=== PATIENT | male | born 1930 | race Caucasian/White ===

== ENCOUNTER 2017-06-02 07:36 | Day surgery (SDC) | payer MEDICARE, OTHER ==
[~2017-06-02 07:36] MED LIST: Lactated Ringers 1,000 ML IV SCH; Lidocaine 1%/Sod Bicarbonate in NS 8.4% 1 ML Syringe IV PRN; Propofol 200 MG/20 ML SDV ONE; Sodium Chloride 0.9% 10 ML Syringe FLUSH PRN; fentaNYL 100 MCG/2 ML SDV ONE
--- NOTE | 2017-06-02 08:00 | PCM.PREANE ---
Preanesthetic Assessment - Procedure Proposed Procedure: Diagnostic EGD/ Colonoscopy - Anesthesia/Transfusion/Family Hx Anesthesia History: Prior Anesthesia Without Reaction Family History of Anesthesia Reaction: No Transfusion History: No Prior Transfusion(s) - Review of Systems General: No Symptoms Pulmonary: Other (HX of PE 2014) Cardiovascular: Other (CABG 1986, HTN) Gastrointestinal: Other (GERD) Neurological: No Symptoms Other: Reports: Easy Bleeding, Easy Bruising (on eliquis), Anxiety - Physical Assessment NPO Status Date: 06/01/17 NPO Status Time: 20:30 Pulse: 68 O2 Sat by Pulse Oximetry: 94 Respiratory Rate: 16 Blood Pressure: 129/61 Temperature: 37.3 C Height: 1.63 m Weight: 70.171 kg ASA Class: 3 Mental Status: Alert & Oriented x3 Airway Class: Mallampati = 2 Dentition: Reports: Partial (upper ) Thyro-Mental Finger Breadths: 3 Mouth Opening Finger Breadths: 3 ROM/Head Extension: Full Lungs: Clear to Auscultation, Normal Respiratory Effort Cardiovascular: Regular Rate, Regular Rhythm - Allergies Allergies/Adverse Reactions: Allergies Allergy/AdvReac Type Severity Reaction Status Date / Time No Known Allergies Allergy Verified 06/01/17 15:08 - Blood Blood Available: No Product(s) Available: None - Anesthesia Plan Pre-Op Medication Ordered: None Beta Nemesio: Atenolol Med Last Dose Date: 06/01/17 Med Last Dose Time: 07:00 - Acknowledgements Anesthesia Type Planned: MAC Pt an Appropriate Candidate for the Planned Anesthesia: Yes Alternatives and Risks of Anesthesia Discussed w Pt/Guardian: Yes Pt/Guardian Understands and Agrees with Anesthesia Plan: Yes PreAnesthesia Questionnaire Other HEENT History: wears eyeglasses, bilateral hearing aides. 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 Endocrine/Metabolic History: Reports: None Hematologic History: Reports: None Immunologic History: Reports: None Oncologic (Cancer) History: Reports: None Dermatologic History: Reports: None - Past Surgical History Head Surgeries/Procedures: Reports: None Cardiovascular Surgical History: Reports: Coronary Artery Bypass Other Cardiovascular Surgeries/Procedures: "quad bypass" Respiratory Surgical History: Reports: None GI Surgical History: Reports: Colonoscopy, EGD, Hernia, Inguinal Female Surgical History: Reports: None Male Surgical History: Reports: None Endocrine Surgical History: Reports: None Other Musculoskeletal Surgeries/Procedures:: laminectomy L4-5, amputation of tip of L) middle finger. Oncologic Surgical History: Reports: None Dermatological Surgical History: Reports: None - SUBSTANCE USE Smoking Status *Q: Former Smoker Tobacco Use Within Last Twelve Months: Cigars Second Hand Smoke Exposure: No Recreational Drug Use History: No - HOME MEDS Home Medications: Home Meds ALPRAZolam [Xanax] 0.25 mg PO TID PRN 06/19/15 [History] Atenolol 25 mg PO DAILY 06/19/15 [History] Niacin 500 mg PO DAILY 06/19/15 [History] Nitroglycerin [Nitrostat] 0.4 mg PO ASDIRECTED PRN 06/19/15 [History] Omeprazole [Prilosec] 20 mg PO DAILY 06/19/15 [History] Simvastatin [Zocor] 40 mg PO BEDTIME 06/19/15 [History] Vitamin E 400 units PO DAILY 06/19/15 [History] Calcium Polycarbophil [Fibercon] 625 mg PO DAILY 06/22/15 [History] Cholecalciferol (Vitamin D3) [Vitamin D3] 1,000 units PO DAILY 06/22/15 [History ] Sildenafil [Viagra] 100 mg PO Q24H PRN #0 06/23/15 [Rx] Acetaminophen [Tylenol Extra Strength] 500 mg PO Q6H PRN 06/01/17 [History] Alum Hydrox/Mag Hydrox/Simeth [Mag-Al Plus] 1 dose PO BID PRN 06/01/17 [History] Apixaban [Eliquis] 5 mg PO BID 06/01/17 [History] Aspirin 81 mg PO DAILY 06/01/17 [History] Calcium Carbonate [Calcium] 600 mg PO DAILY 06/01/17 [History] Fish Oil/[place]-3 Fatty Acids [Fish Oil 1,000 MG] 1,000 mg PO DAILY 06/01/17 [ History] Gluc 2KCl/Chondr/Johnny Hy/Hy Ac [Glucosamine & Chondroitin Cap] 1 cap PO DAILY [History] Lactobacillus Acidophilus [Probiotic] 1 cap PO DAILY 06/01/17 [History] Lutein/Minerals/Vit A,C & E [Ocuvite] 1 tab PO DAILY 06/01/17 [History] Mag Carb/Al Hydrox/Alginic Ac [Gaviscon Liquid] 1 dose PO BEDTIME 06/01/17 [ History] Temazepam [Restoril] 15 mg PO BEDTIME 06/01/17 [History] - CURRENT (IN HOUSE) MEDS Current Meds: Current Medications Lactated Ringer's (Ringers, Lactated) 1,000 mls @ 125 mls/hr IV ASDIRECTED ROBIN Lidocaine/Sodium Bicarbonate (Buffered Lidocaine 1% In Ns 8.4%) 0.25 ml IV ONETIME PRN PRN Reason: Prior to IV Start Sodium Chloride (Saline Flush) 10 ml FLUSH ASDIRECTED PRN PRN Reason: Keep Vein Open Discontinued Medications Fentanyl (Sublimaze) Confirm Administered Dose 100 mcg .ROUTE .STK-MED ONE Stop: 06/02/17 07:22 Propofol (Diprivan 20 Ml) Confirm Administered Dose 200 mg .ROUTE .STK-MED ONE Stop: 06/02/17 07:22
--- NOTE | 2017-06-02 09:07 | PCM48HPAN ---
Post Anesthesia Note - EVALUATION WITHIN 48HRS OF ANESTHETIC Vital Signs in Normal Range: Yes Patient Participated in Evaluation: Yes Respiratory Function Stable: Yes Airway Patent: Yes Cardiovascular Function Stable: Yes Hydration Status Stable: Yes Pain Control Satisfactory: Yes Nausea and Vomiting Control Satisfactory: Yes Mental Status Recovered: Yes
--- NOTE | 2017-06-02 09:10 | PCM.OPNOTE ---
- General Post-Op/Procedure Note Date of Surgery/Procedure: 06/02/17 Operative Procedure(s): egd with dilitation/colonosocopy Findings: distal esophageal stricture/hemorrhoids and diverticulosis JMB Pre Op Diagnosis: GERD/positive fit test Post-Op Diagnosis: Same Primary Surgeon: Arnold Nugent EBL in mLs: 0 Complications: None Condition: Good
--- NOTE | 2017-06-02 12:36 | OR ---
DATE OF OPERATION: 06/02/2017 SURGEON: Arnold Nugent MD PREOPERATIVE DIAGNOSIS: Gastroesophageal reflux disease and dysphagia. POSTOPERATIVE DIAGNOSIS: Gastroesophageal reflux disease and dysphagia. OPERATION PERFORMED: Esophagogastroduodenoscopy with biopsy with esophageal balloon dilatation from 04-24-Wjeljm FINDINGS: Smooth stricture of the distal esophagus, not allowing the passage of the scope. This needed to be dilated from 18-[place] and up to 36-[place]. Second portion of the duodenum, duodenal bulb and pyloric channel were unremarkable. Antrum body, cardia of the stomach and fundus did not show any acute pathology. J maneuver just did not show any tumor, masses and no hiatal hernia. There was evidence of some chronic esophagitis at GE junction. GE junction located about 40 cm. ANESTHESIA: Done under IV sedation. DESCRIPTION OF PROCEDURE: The patient was taken to the endoscopy room, placed in supine position, connected to monitoring equipment, given IV sedation, placed in the left lateral position. Bite block was inserted. Video Olympus gastroscope placed in the posterior oropharynx under direct vision, threaded down the esophagus to the distal end where stenosis was identified during further passage of the scope. Balloon dilators were then inserted and smooth stricture was dilated from 18-36- [place]. The scope was then advanced into the stomach and then advanced through the second portion of the duodenum, duodenal bulb, as slowly withdrawn showing no acute pathology, some deformities of the pyloric channel were noted suggesting no peptic ulcer disease. Antrum, body and cardia of the stomach were reviewed. J-maneuver showed good fundus. The hiatus was seen and did not see any hiatal hernia. Scope was withdrawn to the GE junction which demonstrated some mild chronic esophagitis. Rest of the esophagus viewed as the scope withdrawn unremarkable. The patient tolerated the procedure and IV sedation continued for colonoscopy. ESTIMATED BLOOD LOSS: MMODAL /[id number]
[2017-06-02 12:49] VITALS: BP 130/67
--- NOTE | 2017-06-03 08:27 | OR ---
DATE OF OPERATION: 06/02/2017 SURGEON: Arnold Nugent MD PREOPERATIVE DIAGNOSIS: Positive FIT test. POSTOPERATIVE DIAGNOSIS: Positive FIT test. OPERATION PERFORMED: Colonoscopy to cecum. FINDINGS: Internal hemorrhoids and moderate sigmoid diverticulosis. There were no angiodysplasias, neoplasias, large tumor masses, or ulcerations noted. ANESTHESIA: Procedure performed by Dr. Nugent under IV sedation. DESCRIPTION OF PROCEDURE: The patient was taken to the treatment room and having been connected to monitoring equipment, given IV sedation for upper GI endoscopy, this was continued for colonoscopy. He was placed in left lateral position. Perianal area showed some external hemorrhoids. Rectal exam showed good sphincter tone. A video Olympus colonoscope was introduced into the rectum and threaded up without problem to the cecum, where the appendicular orifice, ileocecal valve was noted. Prep was adequate. [place] cleansing score grade B. The scope was slowly withdrawn showing the cecum, ascending colon, transverse colon, descending colon, sigmoid colon, and rectum. Retroflexed view was done showing the hemorrhoids and diverticulosis were noted. The patient tolerated the procedure and was sent to recovery room in a stable condition. ESTIMATED BLOOD LOSS: MMODAL /[id number]
== END 2017-06-02 10:15 | disposition home or self-care (01) ==
LOC: JD.SDS 07:36
PROVIDERS: ATTEND Surgery
DX: R19.5 Other fecal abnormalities (principal); K57.30 Diverticulosis of large intestine without perforation or abscess without bleeding; K64.8 Other hemorrhoids
CPT/HCPCS: 45378; J3010; J7120; 00810; J2704

== ENCOUNTER 2019-10-02 18:14 | Emergency (ER) | payer MEDICARE, OTHER ==
[2019-10-02 18:23] VITALS: BP 139/77; PULSE 94
[2019-10-02] MEDS ORDERED: Sodium Chloride 0.9% 10 ML Syringe FLUSH PRN (19:03)
--- NOTE | 2019-10-02 19:39 | EDM.PDOC ---
ED HPI GENERAL MEDICAL PROBLEM - General Source of Information: Reports: Patient History Limitations: Reports: No Limitations <Jesús Dixon - Last Filed: 10/02/19 20:45> <Michi Awad - Last Filed: 10/02/19 20:48> - General Chief Complaint: Gastrointestinal Problem Stated Complaint: HEART PALPITATIONS Time Seen by Provider: 10/02/19 18:48 - History of Present Illness INITIAL COMMENTS - FREE TEXT/NARRATIVE: Patient is an unfortunate 89-year-old male who presents emergency Department today with complaint of abdominal grumbly and near syncope. Patient reports he was in his normal state of health until approximately one hour prior to arrival when he felt grumbling sensation in his abdomen which made him get up and go to the bathroom he had diarrhea did not vomit. Patient reports that this happened again about 40 minutes ago at which time the patient got up and he fell because he became severely "lightheaded" with a "whooshing"to his had this caused him to fall and hit his head. Patient is on Eliquis at home, it is unknown whether patient suffer loss of consciousness patient reports that he got whooshing and the next thing he knows he was on the floor. Family was in the other room and when they got to him he was alert and oriented so we do not know if the patient suffered a loss of consciousness patient did not suffer an alteration of mental status, reports he still feels the lightheadedness but is not as severe as it was when he changes positions. Patient has not had any vomiting did have one more episode of diarrhea has not been on antibiotics recently has not had any recent travel and has not had any known bad foods . ( Jesús Dixon) - Related Data Allergies Allergy/AdvReac Type Severity Reaction Status Date / Time No Known Allergies Allergy Verified 10/02/19 18:23 Home Meds: Home Meds ALPRAZolam [Xanax] 0.25 mg PO TID PRN 06/19/15 [History] Niacin 500 mg PO DAILY 06/19/15 [History] Nitroglycerin [Nitrostat] 0.4 mg PO ASDIRECTED PRN 06/19/15 [History] Omeprazole [Prilosec] 20 mg PO DAILY 06/19/15 [History] Simvastatin [Zocor] 40 mg PO BEDTIME 06/19/15 [History] Vitamin E 400 units PO DAILY 06/19/15 [History] atenoloL [Atenolol] 25 mg PO DAILY 06/19/15 [History] Calcium Polycarbophil [Fibercon] 625 mg PO DAILY 06/22/15 [History] Cholecalciferol (Vitamin D3) [Vitamin D3] 1,000 units PO DAILY 06/22/15 [History ] Sildenafil [Viagra] 100 mg PO Q24H PRN #0 06/23/15 [Rx] Acetaminophen [Tylenol Extra Strength] 500 mg PO Q6H PRN 06/01/17 [History] Alum Hydrox/Mag Hydrox/Simeth [Mag-Al Plus] 1 dose PO BID PRN 06/01/17 [History] Apixaban [Eliquis] 5 mg PO BID 06/01/17 [History] Aspirin 81 mg PO DAILY 06/01/17 [History] Calcium Carbonate [Calcium] 600 mg PO DAILY 06/01/17 [History] Fish Oil/[place]-3 Fatty Acids [Fish Oil 1,000 MG] 1,000 mg PO DAILY 06/01/17 [ History] Glucosam/Chondr/Collagn/Hyalur [Glucosamine & Chondroitin Cap] 1 cap PO DAILY [History] Lactobacillus Acidophilus [Probiotic] 1 cap PO DAILY 06/01/17 [History] Lutein/Minerals/Vit A,C & E [Ocuvite] 1 tab PO DAILY 06/01/17 [History] Mag Carb/Al Hydrox/Alginic Ac [Gaviscon Liquid] 1 dose PO BEDTIME 06/01/17 [ History] Temazepam [Restoril] 15 mg PO BEDTIME 06/01/17 [History] Past Medical History Other HEENT History: wears eyeglasses, bilateral hearing aides. 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 Endocrine/Metabolic History: Reports: None Hematologic History: Reports: None Immunologic History: Reports: None Oncologic (Cancer) History: Reports: None Dermatologic History: Reports: None - Past Surgical History Head Surgeries/Procedures: Reports: None Cardiovascular Surgical History: Reports: Coronary Artery Bypass Other Cardiovascular Surgeries/Procedures: "quad bypass" Respiratory Surgical History: Reports: None GI Surgical History: Reports: Colonoscopy, EGD, Hernia, Inguinal Male Surgical History: Reports: None Endocrine Surgical History: Reports: None Other Musculoskeletal Surgeries/Procedures:: laminectomy L4-5, amputation of tip of L) middle finger. Oncologic Surgical History: Reports: None Dermatological Surgical History: Reports: None <Jseús Dixon - Last Filed: 10/02/19 20:45> Social & Family History - Tobacco Use Smoking Status *Q: Never Smoker - Caffeine Use Caffeine Use: Reports: None - Recreational Drug Use Recreational Drug Use: No <Jesús Dixon - Last Filed: 10/02/19 20:45> ED ROS GENERAL - Review of Systems Review Of Systems: See Below Constitutional: Denies: Fever, Chills GI/Abdominal: Reports: Diarrhea, Nausea Neurological: Reports: Dizziness, Syncope, Gait Disturbance <Jesús Dixon - Last Filed: 10/02/19 20:45> - Physical Exam Exam: See Below Exam Limited By: No Limitations General Appearance: Alert, WD/WN, Mild Distress Eye Exam: Bilateral Eye: EOMI, PERRL Head Exam: Normocephalic, Other (Patient has small abrasion to left periorbit) Neck: Normal Inspection, Supple, Non-Tender, Full Range of Motion Respiratory/Chest: No Respiratory Distress, Lungs Clear, Normal Breath Sounds, No Accessory Muscle Use, Chest Non-Tender Cardiovascular: Normal Peripheral Pulses, No Edema, No Gallop, No JVD, No Murmur , No Rub, Other (Tachycardia) GI/Abdominal: Normal Bowel Sounds, Soft, Non-Tender, No Organomegaly, No Distention, No Abnormal Bruit, No Mass Neuro Exam (Abbreviated): Alert, Oriented, CN II-XII Intact Extremities: Other (Abrasion to left posterior shoulder or vascular intact side) Skin Exam: Warm, Dry <Jesús Dixon - Last Filed: 10/02/19 20:45> Course <Jesús Dixon - Last Filed: 10/02/19 20:45> <Michi Awad - Last Filed: 10/02/19 20:48> - Vital Signs Last Recorded V/S: Last Vital Signs Temp 97.8 F 10/02/19 18:21 Pulse 94 10/02/19 18:21 Resp 16 10/02/19 18:21 BP 139/77 10/02/19 18:21 Pulse Ox 95 10/02/19 18:21 - Orders/Labs/Meds Orders: Active Orders 24 hr Category Date Time Status EKG Documentation Completion [RC] ASDIRECTED Care 10/02/19 19:04 Active Sodium Chloride 0.9% [Saline Flush] Med 10/02/19 19:03 Active 10 ml FLUSH ASDIRECTED PRN Saline Lock Insert [OM.PC] Stat Oth 10/02/19 19:03 Ordered EKG 12 Lead [EK] Stat Ther 10/02/19 19:03 Ordered Medication Orders Sodium Chloride (Saline Flush) 10 ml FLUSH ASDIRECTED PRN PRN Reason: Keep Vein Open Last Admin: 10/02/19 19:23 Dose: 10 ml Labs: Laboratory Tests 10/02/19 10/02/19 10/02/19 Range/Units 19:22 19:22 20:26 WBC 9.43 H (4.23-9.07) K/mm3 RBC 4.79 (4.63-6.08) M/mm3 Hgb 15.8 (13.7-17.5) gm/dl Hct 48.3 (40.1-51.0) % MCV 100.8 H (79.0-92.2) fl MCH 33.0 H (25.7-32.2) pg MCHC 32.7 (32.2-35.5) g/dl RDW Std Deviation 50.1 H (35.1-43.9) fL Plt Count 260 (163-337) K/mm3 MPV 9.5 (9.4-12.3) fl Neut % (Auto) 83.2 H (34.0-67.9) % Lymph % (Auto) 6.4 L (21.8-53.1) % [place] % (Auto) 8.8 (5.3-12.2) % Eos % (Auto) 1.3 (0.8-7.0) Baso % (Auto) 0.1 (0.1-1.2) % Neut # (Auto) 7.85 H (1.78-5.38) K/mm3 Lymph # (Auto) 0.60 L (1.32-3.57) K/mm3 [place] # (Auto) 0.83 H (0.30-0.82) K/mm3 Eos # (Auto) 0.12 (0.04-0.54) K/mm3 Baso # (Auto) 0.01 (0.01-0.08) K/mm3 Manual Slide Review Abnormal smear Sodium 139 (136-145) mEq/L Potassium 4.3 (3.5-5.1) mEq/L Chloride 102 (98-107) mEq/L Carbon Dioxide 26 (21-32) mEq/L Anion Gap 15.3 H (5-15) BUN 18 (7-18) mg/dL Creatinine 1.4 H (0.7-1.3) mg/dL Est Cr Clr Drug Dosing 31.13 mL/min Estimated GFR (MDRD) 48 (>60) mL/min BUN/Creatinine Ratio 12.9 L (14-18) Glucose 127 H (83-115) mg/dL Calcium 9.0 (8.5-10.1) mg/dL Total Bilirubin 0.8 (0.2-1.0) mg/dL AST 12 L (15-37) U/L ALT 23 (16-63) U/L Alkaline Phosphatase 87 (46-116) U/L Troponin I < 0.017 (0.00-0.056) ng/mL Total Protein 7.6 (6.4-8.2) g/dl Albumin 3.7 (3.4-5.0) g/dl Globulin 3.9 gm/dL Albumin/Globulin Ratio 1.0 (1-2) Urine Color Yellow (Yellow) Urine Appearance Clear (Clear) Urine pH 6.0 (5.0-8.0) Ur Specific [place] 1.020 (1.005-1.030) Urine Protein Negative (Negative) Urine Glucose (UA) Negative (Negative) Urine Ketones Negative (Negative) Urine Occult Blood Negative (Negative) Urine Nitrite Negative (Negative) Urine Bilirubin Negative (Negative) Urine Urobilinogen 0.2 (0.2-1.0) Ur Leukocyte Esterase Negative (Negative) Meds: Medications Generic Name Dose Route Start Last Admin Trade Name Opal PRN Reason Stop Dose Admin Sodium Chloride 10 ml 10/02/19 19:03 10/02/19 19:23 Saline Flush FLUSH 10 ml ASDIRECTED PRN Administration Keep Vein Open - Re-Assessments/Exams Free Text/Narrative Re-Assessment/Exam: 10/02/19 19:38 Was noted that patient is a trauma alert secondary to Head injury and patient being on [place], Dr. Awad was notified of patient's case and history was given 10/02/19 20:25 L Shoulder x-ray interpreted by me NAD CT had "impression: #1 senescent changes as noted above. #2 no acute intracranial abnormality is identified." (Jesús Dixon) Free Text/Narrative Re-Assessment/Exam: 10/02/19 20:47 I examined the patient myself and I agree with Sam's assessment, plan and disposition. (Michi Awad) Departure - Departure Time of Disposition: 20:45 <Jesús Dixon - Last Filed: 10/02/19 20:45> <Michi Awad - Last Filed: 10/02/19 20:48> - Departure Disposition: Home, Self-Care 01 Clinical Impression: Head contusion Qualifiers: Encounter type: initial encounter Contusion of head detail: other part of head Qualified Code(s): S00.83XA - Contusion of other part of head, initial encounter Shoulder contusion Qualifiers: Encounter type: initial encounter Laterality: left Qualified Code(s): S40.012A - Contusion of left shoulder, initial encounter Diarrhea Qualifiers: Diarrhea type: unspecified type Qualified Code(s): R19.7 - Diarrhea, unspecified Fall Qualifiers: Encounter type: initial encounter Qualified Code(s): W19.XXXA - Unspecified fall, initial encounter - Discharge Information Referrals: Torrey Lee MD [Primary Care Provider] - Forms: ED Department Discharge Additional Instructions: Home, rest, adequate fluids, return as needed for worsening condition Sepsis Event Note - Evaluation Sepsis Screening Result: No Definite Risk - Focused Exam Date Exam was Performed: 10/02/19 Time Exam was Performed: 20:45 <Jesús Dixon - Last Filed: 10/02/19 20:45> - Focused Exam Date Exam was Performed: 10/02/19 Time Exam was Performed: 20:47 <Michi Awad - Last Filed: 10/02/19 20:48> - Focused Exam Vital Signs: Vital Signs Temp Pulse Resp BP Pulse Ox 10/02/19 18:21 97.8 F 94 16 139/77 95
--- NOTE | 2019-10-02 20:16 | CT ---
Head CT Technique: Multiple axial sections through the brain were obtained. Intravenous contrast was not utilized. Comparison: No prior intracranial imaging is available. Findings: Ventricles along with basal cisterns and sulci over the convexities are moderately prominent. Mild diminished density is noted within the periventricular white matter compatible with small vessel ischemic demyelination change. No other abnormal parenchymal densities are seen. No evidence of intracranial hemorrhage. No midline shift or mass effect is seen. Atherosclerotic calcification is noted within the carotid siphon. Bone window settings were reviewed. Visualized paranasal sinuses show nothing acute. Visualized mastoid sinuses also showed nothing acute. No calvarial abnormality is appreciated. Impression: 1. Senescent change as noted above. 2. No acute intracranial abnormality is identified. Diagnostic code #2 Study was dictated in [place] Standard Time
--- NOTE | 2019-10-02 20:22 | CR ---
Left shoulder: 3 views left shoulder were obtained. Comparison: No prior shoulder exam. Mild joint space narrowing appears to be present within the glenohumeral joint. Acromioclavicular joint shows mild inferior spurring. No fracture, dislocation or other bony abnormality is identified. Soft tissue calcification is seen within the left axillary region most likely representing small calcified lymph node. Impression: 1. Mild degenerative change. 2. Nothing acute is appreciated on 3 view left shoulder study. Diagnostic code #2 Study was dictated in [place] Standard Time
== END 2019-10-02 21:12 | disposition home or self-care (01) ==
LOC: JD.ED 18:14
DX: S00.83XA Contusion of other part of head, initial encounter (principal); S40.012A Contusion of left shoulder, initial encounter; R19.7 Diarrhea, unspecified; I10 Essential (primary) hypertension; E78.00 Pure hypercholesterolemia, unspecified; K21.9 Gastro-esophageal reflux disease without esophagitis; F41.9 Anxiety disorder, unspecified; Z95.1 Presence of aortocoronary bypass graft; Z86.711 Personal history of pulmonary embolism; Z79.899 Other long term (current) drug therapy; Z79.82 Long term (current) use of aspirin; Z79.01 Long term (current) use of anticoagulants; W19.XXXA Unspecified fall, initial encounter; W22.8XXA Striking against or struck by other objects, initial encounter
CPT/HCPCS: 36415; 70450; 70450-26; 73030-26-LT; 73030-LT; 80053; 81003; 84484; 85025; 93005; 99284-25